=== PATIENT | female | born 1950 | race Caucasian/White ===

== ENCOUNTER 2022-10-10 11:20 | Emergency (ER) | payer MEDICARE, OTHER ==
[~2022-10-10] VITALS: Ht 152.4 cm; Wt 64.4 kg
[2022-10-10] MEDS ORDERED: GABAPENTIN100 MG PO (11:55)
[2022-10-10] MEDS ORDERED: FOLIC ACID1 M1 PO (11:55)
[2022-10-10] MEDS ORDERED: METHOTREXATE S2.5 MG PO (11:58)
[2022-10-10] MEDS ORDERED: PREVACID30 M3 PO (12:00)
[2022-10-10] MEDS ORDERED: LORTAB 1010 MG PO (12:00)
[2022-10-10] MEDS ORDERED: VITAMIN D5000 UNI1 (12:02)
[2022-10-10] MEDS ORDERED: VOLTAREN - GENE75 MG PO (12:02)
[2022-10-10] MEDS ORDERED: XANAX0.25 MG PO (12:03)
[2022-10-10 12:37] LABS: URINE BILIRUBIN - DIPSTICK NEGATIVE (NEGATIVE); URINE BLOOD DIPSTICK NEGATIVE (NEGATIVE); URINE COLOR YELLOW; URINE GLUCOSE - DIPSTICK NEGATIVE (NEGATIVE); URINE KETONE NEGATIVE (NEGATIVE); URINE PROTEIN - DIPSTICK NEGATIVE (NEG-TRACE); URINE SPECIFIC GRAVITY <=1.005; URINE UROBILINOGEN - DIPSTICK 0.2 E.U./dL (0.2)
[2022-10-10 12:42] LABS: URINE LEUK ESTERASE SMALL (NEGATIVE); URINE NITRITE - DIPSTICK NEGATIVE (Negative)
[2022-10-10 12:43] LABS: URINE BACTERIA FEW hpf; URINE EPITHELIAL CELLS FEW EPI/hpf (0-FEW)
[2022-10-10] MEDS ORDERED: PREDNISONE10 MG PO (14:13)
[2022-10-10] MEDS ORDERED: METHOCARBAMOL500 MG PO (14:13)
[2022-10-10 14:26] VITALS: BP 120/77
== END 2022-10-10 14:27 | disposition home or self-care (01) ==
LOC: ED 11:20
PROVIDERS: Nurse Practitioner
DX: S20.212A Contusion of left front wall of thorax, initial encounter (principal); S09.90XA Unspecified injury of head, initial encounter; K21.9 Gastro-esophageal reflux disease without esophagitis; G89.4 Chronic pain syndrome; F41.9 Anxiety disorder, unspecified; M19.90 Unspecified osteoarthritis, unspecified site; W01.0XXA Fall on same level from slipping, tripping and stumbling without subsequent striking against object, initial encounter